=== PATIENT | female | born 1960 | race African-American/Black ===

== ENCOUNTER → 2017-06-06 07:21 | Outpatient (CLI) | payer MEDICARE, MEDICAID ==
[2013-04-29 08:01] VITALS: BMI 34.5
[~2017-06-06 07:21] MED LIST: ABILIFY2 MG; ATIVAN1 MG PO; BUSPAR10 MG; BUSPAR10 MG PO; CYMBALTA60 MG PO; LORTAB 7.5/5001 TA1 PO; NEXIUM40 MG PO; NORCO 7.5-3251 EACH PO
== END | disposition home or self-care (01) ==
LOC: D.CT 07:21
DX: R10.9 Unspecified abdominal pain (principal); Z85.00 Personal history of malignant neoplasm of unspecified digestive organ